=== PATIENT | female | born 1945 | race Asian ===

== ENCOUNTER 2019-10-25 19:22 | Observation (INO) | payer OTHER ==
--- NOTE | 2019-10-25 19:35 | PDOC ---
Attending Attestation - Resident Resident Name: Jesse Hutson - ED Attending Attestation I have performed the following: I have examined & evaluated the patient, The case was reviewed & discussed with the resident, I agree w/resident's findings & plan - HPI HPI: 10/25/19 23:33 see resident hpi - Physicial Exam PE: 10/25/19 23:33 see resident exam - Medical Decision Making 10/25/19 23:34 74-year-old female complaining of substernal/epigastric discomfort with nausea CT scan of the abdomen and pelvis shows no significant acute findings EKG shows a sinus rhythm at 70 bpm with no acute ST segment elevation Patient feels better, in light of her age and location of pain will hold for telemetry observation and serial enzymes Of note patient is status post valve repair and currently on cholesterol- lowering medications Discharge - Discharge Information Problems reviewed: Yes Clinical Impression/Diagnosis: Substernal discomfort Condition: Fair - Follow up/Referral Referrals: ON STAFF,NOT [Primary Care Provider] - - Patient Discharge Instructions - Post Discharge Activity
[2019-10-25] MEDS ORDERED: ACETAMINOPHEN 1000 MG/100 ML VIAL (NON FORMULARY) IVPB ONE (20:06)
[2019-10-25] MEDS ORDERED: FAMOTIDINE 20 MG/50 ML IVPB 20 MG/50 ML MG IVPB ONE ×2 (20:07→20:50)
[2019-10-25] MEDS ORDERED: MAG HYDROX/AL HYDROX/SIMETH 30 ML UNIT-DOSE CUP PO ONE (20:07)
[2019-10-25 20:43] LABS: BASO % 0.4 % (0-2.0); EOS % 1.1 % (0-4.5); HEMATOCRIT 38.9 % (32.4-45.2); HEMOGLOBIN 12.9 GM/dL (10.7-15.3); LYMPH % 23.1 % (8-40); MCH 30.8 pg (25.7-33.7); MCHC 33.1 g/dl (32.0-36.0); MEAN CELL VOLUME 93.3 fl (80-96); MEAN PLT VOLUME 9.1 fl (7.5-11.1); MONO % 14.5 % (3.8-10.2); NEUT % 60.9 % (42.8-82.8); PLATELET COUNT 166 K/MM3 (134-434); RBC 4.17 M/mm3 (3.60-5.2); RDW 13.3 % (11.6-15.6)
[2019-10-25 20:50] LABS: INR 0.92 (0.83-1.09); PROTHROMBIN TIME (PATIENT) 10.9 SEC (9.7-13.0)
[2019-10-25] MEDS ORDERED: MAG HYDROX/AL HYDROX/SIMETH 30 ML UNIT-DOSE CUP ONE (20:50)
[2019-10-25] MEDS ORDERED: ACETAMINOPHEN INJECTION 100 ML IVPB ONE (20:50)
[2019-10-25 20:53] LABS: ACTIVATED PTT 30.7 SECONDS (25.2-36.5)
--- NOTE | 2019-10-25 21:04 | PDOC ---
History of Present Illness - General Chief Complaint: Pain Stated Complaint: ABD PAIN Time Seen by Provider: 10/25/19 19:33 - History of Present Illness Initial Comments: 10/25/19 20:53 74yo female with HLD and an open heart surgery (likely a valve replacement) in 2012 presents with epigastric pain for four days. She complains of non-radiating constant epigastric pain associated with nausea, decreased appetite, abdominal fullness, belching, and seven pound weight loss in five days. She states she is having normal bowel movements, last BM yesterday. PMH/PSH: as above Meds: aspirin and cholesterol medication Allergies: none PCP: Halima Sexton, located in the [place] ([facility]) ROS GENERAL/CONSTITUTIONAL: No fever or chills. No weakness. HEAD, EYES, EARS, NOSE AND THROAT: No change in vision. No ear pain or dischar ge. No sore throat. CARDIOVASCULAR: No chest pain or shortness of breath RESPIRATORY: No cough, wheezing, or hemoptysis. GASTROINTESTINAL: nausea, epigastric pain, decreased appetite. No vomiting, diarrhea or constipation. GENITOURINARY: No dysuria, frequency, or change in urination. MUSCULOSKELETAL: No joint or muscle swelling or pain. No neck or back pain. SKIN: No rash NEUROLOGIC: No headache, vertigo, loss of consciousness, or change in strength/sensation. ENDOCRINE: No increased thirst. No abnormal weight change HEMATOLOGIC/LYMPHATIC: No anemia, easy bleeding, or history of blood clots. ALLERGIC/IMMUNOLOGIC: No hives or skin allergy. PE GENERAL: Awake, alert, and fully oriented, in no acute distress HEAD: No signs of trauma, normocephalic, atraumatic EYES: PERRLA, EOMI, sclera anicteric, conjunctiva clear ENT: Auricles normal inspection, hearing grossly normal, nares patent, oropharynx clear without exudates. Moist mucosa NECK: Normal ROM, supple, no lymphadenopathy, JVD, or masses LUNGS: No distress, speaks full sentences, clear to auscultation bilaterally HEART: Regular rate and rhythm, normal S1 and S2, no murmurs, rubs or gallops, peripheral pulses normal and equal bilaterally. ABDOMEN: Soft, tender to palpation in epigastrum and LLQ normoactive bowel sounds. No guarding, no rebound. No masses EXTREMITIES : Normal inspection, Normal range of motion, no edema. No clubbing or cyanosis. NEUROLOGICAL: Cranial nerves II through XII grossly intact. Normal speech, no focal sensorimotor deficits SKIN: Warm, Dry, normal turgor, no rashes or lesions noted Vital Signs Temp Pulse Resp BP Pulse Ox 98.3 F 73 19 148/69 96 10/25/19 19:25 10/25/19 19:25 10/25/19 19:25 10/25/19 19:25 10/25/19 19:25 MDM: 74yo female with HLD and an open heart surgery (likely a valve replacement) in 2012 presents with epigastric pain for four days. She complains of non-radiating constant epigastric pain associated with nausea, decreased appetite, abdominal fullness, belching, and seven pound weight loss in five days. Differential includes bowel obstruction, diverticulitis, pancreatitis, ACS. -EKG, CXR -CBC, CMP, coags, trops, lipase -CT A/P with IV contrast -tylenol, pepcid, maalox 10/25/19 22:28 EKG: NSR, rate 70, low voltage QRS, normal axis and intervals, no ischemic gabriel nges CXR: wnl RUQ: negative for acute pathology Labs: nothing acute Patient reports significant improvement in her symptoms. Signed out to night team CT A/P pending read Past History - Medical History Allergies/Adverse Reactions: Allergies Allergy/AdvReac Type Severity Reaction Status Date / Time No Known Allergies Allergy Verified 10/25/19 19:36 Home Medications: Ambulatory Orders Aspirin [Ecotrin] 81 mg PO DAILY 10/26/19 Atorvastatin Calcium 10/26/19 Dexilant 10/26/19 - Psycho-Social/Smoking History Smoking History: Never smoked Have you smoked in the past 12 months: No Information on smoking cessation initiated: No - Substance Abuse Hx (Audit-C & DAST Scrn) How often the patient has a drink containing alcohol: Never Score: In Men: 4 or > Positive; In Women: 3 or > Positive: 0 Screen Result (Pos requires Nsg. Audit-10AR): Negative In the last yr the pt used illegal drug/Rx for NonMed reason: No Score: Yes response is considered Positive: 0 Screen Result (Positive result requires Nsg. DAST-10): Negative *Physical Exam - Vital Signs Last Vital Signs Temp Pulse Resp BP Pulse Ox 98.3 F 73 19 148/69 96 10/25/19 19:25 10/25/19 19:25 10/25/19 19:25 10/25/19 19:25 10/25/19 19:25 ED Treatment Course - LABORATORY CBC & Chemistry Diagram: 10/26/19 07:00 10/26/19 07:00 - ADDITIONAL ORDERS Additional order review: Laboratory Results 10/25/19 20:29 PT with INR 10.90 INR 0.92 - RADIOLOGY Radiology Studies Ordered: Category Date Time Status ABDOMEN & PELVIS CT WITH CONTR [CT] Stat CT Scan 10/25/19 19:56 Ordered ABDOMEN US -LIMITED [US] Stat Ultrasound 10/25/19 19:58 Ordered Discharge - Discharge Information Problems reviewed: Yes Clinical Impression/Diagnosis: Substernal discomfort Condition: Fair - Follow up/Referral - Patient Discharge Instructions - Post Discharge Activity
[2019-10-25 21:17] LABS: ALBUMIN 3.7 g/dl (3.4-5.0); CALCIUM 8.9 mg/dL (8.5-10.1); CHLORIDE 110 mmol/L (98-107); LIPASE 214 U/L (73-393); POTASSIUM 4.9 mmol/L (3.5-5.1)
[2019-10-25 21:18] LABS: ALK PHOS 68 U/L (45-117); ANION GAP 7 MMOL/L (8-16); BILIRUBIN,TOTAL 0.4 mg/dL (0.2-1); BLOOD UREA NITROGEN 17.9 mg/dL (7-18); CO2 25 mmol/L (21-32); CREATININE 0.7 mg/dL (0.55-1.3); GLUCOSE,RANDOM 109 mg/dL (74-106); SGOT/AST 25 U/L (15-37); SGPT/ALT 21 U/L (13-61); SODIUM 142 mmol/L (136-145); TOT PROT 7.2 g/dl (6.4-8.2)
[2019-10-25 21:57] LABS: EPI CELLS 4 /uL (0-25.1); HYALINE CASTS 2 /uL (0-3.1); URINE APPEARANCE CLEAR; URINE BACTERIA 15 /uL (0-1359); URINE BILIRUBIN NEGATIVE (NEGATIVE); URINE COLOR YELLOW; URINE GLUCOSE (UA) NEGATIVE (NEGATIVE); URINE KETONE TRACE (NEGATIVE); URINE LEUK ESTERASE NEGATIVE (NEGATIVE); URINE NITRITE NEGATIVE (NEGATIVE); URINE PROTEIN NEGATIVE (NEGATIVE); URINE RBC 47 /uL (0-23.9); URINE WBC 5 /uL (0-25.8)
--- NOTE | 2019-10-26 03:35 | HP ---
CHIEF COMPLAINT: abdominal and epigastric pain PCP: Dr. Halima Sexton HISTORY OF PRESENT ILLNESS: 74yo F with PMHx of HLD, ?GERD, and open heart surgery in 2013 for valve replacement who presents with abdominal and epigastric pain. Patient said that the pain started on Thursday and has not gotten better. Since onset she has been unable to eat due to lack of appetite. She had a small BM today but before that one her last BM was on . She describes the pain as located in her upper abdomen and epigastric area, without radiation. This is the third time she has had this problem, once before in July and once in August. 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 Patient also explained that she has a abdominal CT scan scheduled for November 02 to further investigate her pain. As associated symptoms she felt subjective fever on Thursday night, but has not felt it the other days, and she endorsed CP when she has to strain during attempts to defecate. Otherwise she denied any associated symptoms including SOB, CP at rest, fevers/chills, dizziness, headaches. Patient exercises daily by walking 1-1.5h, experiences mild SOB when walking up stairs with bilateral knee pain. Has not exercised since symptoms started. ER course was notable for: (1) given ofirmev, pepcid, mylanta, and famotidine with symptomatic improvement and flatulence (2) EKG, CXR, and RUQ US unremarkable (3) abdominal/pelvic CT showing 0.7cm cyst in caudate lobe of liver, 1cm R hepatic lobe cyst, 1cm L ovarian cyst (4) CBC, BMP, coags, LFTs - all in range (5) CK 241, CK-MB 4.7, trop <0.02, lipase 214 (6) UA: trace ketones, 1+ blood, otherwise unremarkable. Urine culture pending Recent Travel: none PAST MEDICAL HISTORY: as per above PAST SURGICAL HISTORY: open heart surgery 2013 for her two children Family history: sister in [place] has colon cancer parents from old age in their 90s Social History: Smoking: denied but her is a smoker Alcohol: denied Drugs: denied Home: lives with Allergies No Known Allergies Allergy (Verified 10/25/19 19:36) HOME MEDICATIONS: patient takes the following meds but is unsure of dosages: dexilant crestor ASA Calcium vitamin D vitamin B12 multivitamin REVIEW OF SYSTEMS as per above PHYSICAL EXAMINATION Vital Signs - 24 hr 10/25/19 19:25 Temperature 98.3 F Pulse Rate 73 Respiratory 19 Rate Blood Pressure 148/69 O2 Sat by Pulse 96 Oximetry (%) GENERAL: F, appears mildly younger than stated age, sleeping but easily arousable, fully oriented showing no signs of acute distress HEAD: Normal with no signs of trauma LUNGS: CTAB without wheezing HEART: RRR, S2 much sharper than S1, no murmurs appreciated ABDOMEN: Soft, mildly tender to deep palpation in epigastric area, not distended, hyperactive bowel sounds, longstanding bone pain at xyphoid process, vertical sternal scar appreciated ~15cm MUSCULOSKELETAL: Normal range of motion at all joints EXTREMITIES: radial pulses and dorsalis pedis pulses palpable, no peripheral edema appreciated NEUROLOGICAL: Cranial nerves II-XII grossly intact, symmetrical facial movements, normal speech, no visual field deficits PSYCHIATRIC: Cooperative and interactive. Good eye contact. Responds appropria tly, tired mood and affect congruent with stated mood SKIN: no other rashes or lesions noted Laboratory Results - last 24 hr 10/25/19 10/25/19 10/25/19 20:20 20:29 20:29 WBC 5.0 RBC 4.17 Hgb 12.9 Hct 38.9 MCV 93.3 MCH 30.8 MCHC 33.1 RDW 13.3 Plt Count 166 MPV 9.1 Absolute Neuts (auto) 3.0 Neutrophils % 60.9 Lymphocytes % 23.1 Monocytes % 14.5 H Eosinophils % 1.1 Basophils % 0.4 Nucleated RBC % 0 PT with INR 10.90 INR 0.92 PTT (Actin FS) 30.7 Sodium 142 Potassium 4.9 Chloride 110 H Carbon Dioxide 25 Anion Gap 7 L BUN 17.9 Creatinine 0.7 Est GFR (CKD-EPI)AfAm 97.54 Est GFR (CKD-EPI)NonAf 84.16 Random Glucose 109 H Lactic Acid Calcium 8.9 Total Bilirubin 0.4 AST 25 ALT 21 Alkaline Phosphatase 68 Creatine Kinase 241 H Creatine Kinase Index 1.9 CK-MB (CK-2) 4.7 H Troponin I < 0.02 Total Protein 7.2 Albumin 3.7 Lipase 214 Urine Color Urine Appearance Urine pH Ur Specific [place] Urine Protein Urine Glucose (UA) Urine Ketones Urine Blood Urine Nitrite Urine Bilirubin Urine Urobilinogen Ur Leukocyte Esterase Urine WBC (Auto) Urine RBC (Auto) Urine Casts (Auto) U Epithel Cells (Auto) Urine Bacteria (Auto) 10/25/19 10/25/19 20:29 21:39 WBC RBC Hgb Hct MCV MCH MCHC RDW Plt Count MPV Absolute Neuts (auto) Neutrophils % Lymphocytes % Monocytes % Eosinophils % Basophils % Nucleated RBC % PT with INR INR PTT (Actin FS) Sodium Potassium Chloride Carbon Dioxide Anion Gap BUN Creatinine Est GFR (CKD-EPI)AfAm Est GFR (CKD-EPI)NonAf Random Glucose Lactic Acid 0.7 Calcium Total Bilirubin AST ALT Alkaline Phosphatase Creatine Kinase Creatine Kinase Index CK-MB (CK-2) Troponin I Total Protein Albumin Lipase Urine Color Yellow Urine Appearance Clear Urine pH 5.0 Ur Specific [place] 1.033 Urine Protein Negative Urine Glucose (UA) Negative Urine Ketones Trace H Urine Blood 1+ H Urine Nitrite Negative Urine Bilirubin Negative Urine Urobilinogen 1.0 Ur Leukocyte Esterase Negative Urine WBC (Auto) 5 Urine RBC (Auto) 47 Urine Casts (Auto) 2 U Epithel Cells (Auto) 4 Urine Bacteria (Auto) 15 ASSESSMENT/PLAN: 74yo F with PMHx of HLD, ?GERD, and open heart surgery in 2012 for valve replacement who presents with abdominal and epigastric pain. ED course showed symptomatic improvement with passing of flatulence after receiving ofirmev, pepcid, mylanta, and famotidine, and patient is admitted for r/o ACS given cardiac history. #abdominal/epigastric pain - possibly due to severe GERD vs peptic ulcer vs gastritis patient is being worked up by another physician, would recommend to f/u with Dr. Suarez [phone] for full detailed medical history, up to date workup, and inform him of her recent CT scan since she is scheduled for one on November 02. Can also contact the daughter if indicated at [phone]. - started lipitor 40 - started ASA 81 - started pantoprazole 40 - will continue with symptomatic treatment - if pain worsens, can give PO acetaminophen - currently no consultations indicated (GI vs cardio) #r/o ACS - trending trops #PPX - DVT: lovenox - GI: pantoprazole #FEN - no standing fluids - replete lytes PRN - regular diet #Dispo: continue monitoring on telemetry. Family Medical History Family History: As Documented Visit type - Medication Review Med list reviewed for High Risk Meds patients 65 and older: No - Emergency Visit Emergency Visit: Yes ED Registration Date: 10/26/19 Care time: The patient presented to the Emergency Department on the above date and was hospitalized for further evaluation of their emergent condition. - New Patient This patient is new to me today: Yes Date on this admission: 10/26/19 - Critical Care Critical Care patient: No ATTENDING PHYSICIAN STATEMENT I saw and evaluated the patient. I reviewed the resident's note and discussed the case with the resident. I agree with the resident's findings and plan as documented. SUBJECTIVE: OBJECTIVE: ASSESSMENT AND PLAN:
--- NOTE | 2019-10-26 04:07 | PN ---
Teaching Attending Note Name of Resident: Dev Mares ATTENDING PHYSICIAN STATEMENT I saw and evaluated the patient. I reviewed the resident's note and discussed the case with the resident. I agree with the resident's findings and plan as documented. SUBJECTIVE: OBJECTIVE: ASSESSMENT AND PLAN: 74 year old female with a PMHx notable for HLD and an open heart surgery (likely a valve replacement) in 2012 who presents with epigastric pain x four days. PLAN # CT imaging with no acute pathology - Agree with IV fluids, anti-emetics, pain management - PPI - consider GI evaluation
[2019-10-26 05:38] VITALS: BMI 23.9
[2019-10-26] MEDS ORDERED: PANTOPRAZOLE 40 MG TABLET PO SCH (07:00)
[2019-10-26 08:22] LABS: BASO % 0.3 % (0-2.0); EOS % 1.3 % (0-4.5); HEMOGLOBIN 12.7 GM/dL (10.7-15.3); LYMPH % 34.4 % (8-40); MCH 30.8 pg (25.7-33.7); MCHC 33.4 g/dl (32.0-36.0); MEAN CELL VOLUME 92.2 fl (80-96); MONO % 14.8 % (3.8-10.2); NEUT % 49.2 % (42.8-82.8); PLATELET COUNT 165 K/MM3 (134-434); RBC 4.13 M/mm3 (3.60-5.2); RDW 13.4 % (11.6-15.6); WHITE BLOOD COUNT 4.5 K/mm3 (4.0-10.0)
[2019-10-26 08:27] LABS: ALBUMIN 3.6 g/dl (3.4-5.0); ALK PHOS 63 U/L (45-117); ANION GAP 6 MMOL/L (8-16); BILIRUBIN,TOTAL 0.5 mg/dL (0.2-1); BLOOD UREA NITROGEN 15.2 mg/dL (7-18); CALCIUM 8.7 mg/dL (8.5-10.1); CHLORIDE 109 mmol/L (98-107); CO2 26 mmol/L (21-32); CREATININE 0.6 mg/dL (0.55-1.3); GLUCOSE,RANDOM 88 mg/dL (74-106); MAGNESIUM 2.5 mg/dL (1.8-2.4); PHOSPHOROUS 3.1 mg/dL (2.5-4.9); POTASSIUM 5.4 mmol/L (3.5-5.1); SGOT/AST 24 U/L (15-37); SGPT/ALT 22 U/L (13-61); SODIUM 141 mmol/L (136-145); TOT PROT 6.8 g/dl (6.4-8.2)
[2019-10-26] MEDS ORDERED: ASPIRIN 81 MG CHEWABLE TABLETS PO SCH (10:00)
[2019-10-26] MEDS ORDERED: ENOXAPARIN NA (PORCINE) 40 MG/0.4 ML DISP.SYRIN SQ SCH (10:00)
--- NOTE | 2019-10-26 10:05 | EKG ---
Test Reason : Blood Pressure : / mmHG Vent. Rate : 070 BPM Atrial Rate : 070 BPM P-R Int : 154 ms QRS Dur : 072 ms QT Int : 414 ms P-R-T Axes : 027 048 062 degrees QTc Int : 447 ms NORMAL SINUS RHYTHM LOW VOLTAGE QRS BORDERLINE ECG NO PREVIOUS ECGS AVAILABLE Confirmed by MD James, Gadiel ([id number]) on 10/26/2019 10:04:46 AM Referred By: Confirmed By:Gadiel Ramirez MD
[2019-10-26] MEDS ORDERED: SODIUM ZIRCONIUM CYCLOSILICATE (LOKELMA) 5 GM PACKET PO ONE (10:06)
[2019-10-26] MEDS ORDERED: FLUCONAZOLE 100 MG TABLET (UD) PO SCH (10:15)
[2019-10-26] MEDS ORDERED: SODIUM ZIRCONIUM CYCLOSILICATE (LOKELMA) 5 GM PACKET PO SCH (10:15)
--- NOTE | 2019-10-26 13:25 | DS ---
Physical Exam: SUBJECTIVE: Patient seen and examined. Pt. denies any pain. OBJECTIVE: Vital Signs Period Temp Pulse Resp BP Sys/[place] Pulse Ox Last 24 Hr 97.6 F-98.3 F 62-73 18-22 102-148/55-69 96-98 PHYSICAL EXAM GENERAL: The patient is awake, alert, and fully oriented, in no acute distress. HEAD: Normal with no signs of trauma. EYES: Sclera anicteric, conjunctiva clear. ENT: Ears normal, nares patent, oropharynx clear without exudates, moist mucous membranes. NECK: Trachea midline, full range of motion, supple. LUNGS: Breath sounds equal, clear to auscultation bilaterally, no wheezes, no crackles, no accessory muscle use. HEART: Regular rate and rhythm, S1, S2 without murmur ABDOMEN: Soft, nontender, nondistended, normoactive bowel sounds, no guarding, no rebound, no hepatosplenomegaly, no masses. EXTREMITIES: 2+ dorsal pedal pulses, warm, well-perfused, no edema. NEUROLOGICAL: Normal speech, gait not observed. PSYCH: Normal mood, normal affect. SKIN: Warm, dry, normal turgor, no rashes or lesions noted. LABS Laboratory Results - last 24 hr 10/25/19 10/25/19 10/25/19 20:20 20:29 20:29 WBC 5.0 RBC 4.17 Hgb 12.9 Hct 38.9 MCV 93.3 MCH 30.8 MCHC 33.1 RDW 13.3 Plt Count 166 MPV 9.1 Absolute Neuts (auto) 3.0 Neutrophils % 60.9 Lymphocytes % 23.1 Monocytes % 14.5 H Eosinophils % 1.1 Basophils % 0.4 Nucleated RBC % 0 PT with INR 10.90 INR 0.92 PTT (Actin FS) 30.7 Sodium 142 Potassium 4.9 Chloride 110 H Carbon Dioxide 25 Anion Gap 7 L BUN 17.9 Creatinine 0.7 Est GFR (CKD-EPI)AfAm 97.54 Est GFR (CKD-EPI)NonAf 84.16 Random Glucose 109 H Hemoglobin A1c % Lactic Acid Calcium 8.9 Phosphorus Magnesium Total Bilirubin 0.4 AST 25 ALT 21 Alkaline Phosphatase 68 Creatine Kinase 241 H Creatine Kinase Index 1.9 CK-MB (CK-2) 4.7 H Troponin I < 0.02 Total Protein 7.2 Albumin 3.7 Lipase 214 Urine Color Urine Appearance Urine pH Ur Specific [place] Urine Protein Urine Glucose (UA) Urine Ketones Urine Blood Urine Nitrite Urine Bilirubin Urine Urobilinogen Ur Leukocyte Esterase Urine WBC (Auto) Urine RBC (Auto) Urine Casts (Auto) U Epithel Cells (Auto) Urine Bacteria (Auto) 10/25/19 10/25/19 10/26/19 20:29 21:39 07:00 WBC 4.5 RBC 4.13 Hgb 12.7 Hct 38.0 MCV 92.2 MCH 30.8 MCHC 33.4 RDW 13.4 Plt Count 165 MPV 9.0 Absolute Neuts (auto) 2.2 Neutrophils % 49.2 Lymphocytes % 34.4 D Monocytes % 14.8 H Eosinophils % 1.3 Basophils % 0.3 Nucleated RBC % 0 PT with INR INR PTT (Actin FS) Sodium Potassium Chloride Carbon Dioxide Anion Gap BUN Creatinine Est GFR (CKD-EPI)AfAm Est GFR (CKD-EPI)NonAf Random Glucose Hemoglobin A1c % Lactic Acid 0.7 Calcium Phosphorus Magnesium Total Bilirubin AST ALT Alkaline Phosphatase Creatine Kinase Creatine Kinase Index CK-MB (CK-2) Troponin I Total Protein Albumin Lipase Urine Color Yellow Urine Appearance Clear Urine pH 5.0 Ur Specific [place] 1.033 Urine Protein Negative Urine Glucose (UA) Negative Urine Ketones Trace H Urine Blood 1+ H Urine Nitrite Negative Urine Bilirubin Negative Urine Urobilinogen 1.0 Ur Leukocyte Esterase Negative Urine WBC (Auto) 5 Urine RBC (Auto) 47 Urine Casts (Auto) 2 U Epithel Cells (Auto) 4 Urine Bacteria (Auto) 15 10/26/19 10/26/19 07:00 11:40 WBC RBC Hgb Hct MCV MCH MCHC RDW Plt Count MPV Absolute Neuts (auto) Neutrophils % Lymphocytes % Monocytes % Eosinophils % Basophils % Nucleated RBC % PT with INR INR PTT (Actin FS) Sodium 141 Potassium 5.4 H Chloride 109 H Carbon Dioxide 26 Anion Gap 6 L BUN 15.2 Creatinine 0.6 Est GFR (CKD-EPI)AfAm 102.62 Est GFR (CKD-EPI)NonAf 88.54 Random Glucose 88 Hemoglobin A1c % 5.6 Lactic Acid Calcium 8.7 Phosphorus 3.1 Magnesium 2.5 H Total Bilirubin 0.5 AST 24 ALT 22 Alkaline Phosphatase 63 Creatine Kinase Creatine Kinase Index CK-MB (CK-2) Troponin I < 0.02 Total Protein 6.8 Albumin 3.6 Lipase Urine Color Urine Appearance Urine pH Ur Specific [place] Urine Protein Urine Glucose (UA) Urine Ketones Urine Blood Urine Nitrite Urine Bilirubin Urine Urobilinogen Ur Leukocyte Esterase Urine WBC (Auto) Urine RBC (Auto) Urine Casts (Auto) U Epithel Cells (Auto) Urine Bacteria (Auto) HOSPITAL COURSE: Date of Admission:10/26/19 Date of Discharge: 10/26/19 Pt. admitted for abdominal pain. CT Abd/Pelvis and Abd US negative for acute pathology. Cardiac enzymes, CMP, Lipase and CBC wnl. Pt. given antacids to good effect. EGD report reviewed from Dr. Car's office. Discussed with your GI physician that all medications for management of your candidiasis infections were sent. Hospital follow up as detailed below. PT. monitored on telemetry without acute events, given concern for atypical chest pain. HIV test sent. Minutes to complete discharge: 25 Discharge Summary Problems reviewed: Yes Reason For Visit: SUBSTERNAL DISCOMFORT, NAUSEA Current Active Problems Substernal discomfort (Acute) Condition: Stable - Instructions Diet, Activity, Other Instructions: You came in for abdominal pain that started 5 days ago and was associated with nausea and vomiting. We imaged your abdomen and did not find anything immediately concerning. We contacted Dr. 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 We called your pharmacy and noted that Dr. Suarez has sent all the prescriptions there that you need. Please take them as directed. Please follow up with your [employer] Att[employer] Dr. Suarez within 1 week. Please follow up with your Primary [facility] Physician within 1 week. If you do not have one we have provided one for you. Referrals: [facility] [place] [Provider Group] - 1 Week ON STAFF,NOT [Primary Care Provider] - 1 Week Disposition: HOME - Home Medications Comprehensive Discharge Medication List: Ambulatory Orders Aspirin [Ecotrin] 81 mg PO DAILY 10/26/19 Atorvastatin Ca [Lipitor] 20 mg PO HS 10/26/19 Calcium Carbonate/Vitamin D3 [Calcium 500-Vit D3 200 Tablet] 1 each PO DAILY 10/26/19 Cholecalciferol (Vitamin D3) [Vitamin D3 -] 1,000 mg PO DAILY 10/26/19 Dexlansoprazole [Dexilant] 60 mg PO DAILY 10/26/19 Famotidine [Pepcid] 40 mg PO BID 10/26/19 Ibandronate Sodium 150 mg PO DAILY 10/26/19 Oxybutynin Chloride 5 mg PO DAILY 10/26/19 This patient is new to me today: Yes Date on this admission: 10/26/19 Emergency Visit: Yes ED Registration Date: 10/26/19 Care time: The patient presented to the Emergency Department on the above date and was hospitalized for further evaluation of their emergent condition. Critical Care patient: No - Discharge Referral Referred to [facility] Med [facility] No ATTENDING PHYSICIAN STATEMENT I saw and evaluated the patient. I reviewed the resident's note and discussed the case with the resident. I agree with the resident's findings and plan as documented. SUBJECTIVE: OBJECTIVE: ASSESSMENT AND PLAN:
[2019-10-26 14:17] VITALS: BP 113/58; PULSE 71; TEMP 97.9
[2019-10-26] MEDS ORDERED: ATORVASTATIN CA 40 MG TABLET (FP) PO SCH (22:00)
[2019-10-27] MEDS ORDERED: FLUCONAZOLE 40 MG/ML SUSPENSION PO SCH (10:00)
== END 2019-10-26 15:24 | disposition home or self-care (01) ==
LOC: JER 19:22 → SUPCPDRO 19:22 → JERBED 10-26 00:38 → UNDOADMOB 10-26 00:38 → INTOOBSV 10-26 02:18 → OBSVTOIN 10-26 02:18 → JERBED 10-26 04:34 → J4W 10-26 04:34 → JERBED 10-26 09:56
PROVIDERS: ADMIT Internal Medicine
PROC: 3E033NZ Introduction of Analgesics, Hypnotics, Sedatives into Peripheral Vein, Percutaneous Approach (ICD-10-PCS; principal; 2019-10-26)
PROC: 3E023GC Introduction of Other Therapeutic Substance into Muscle, Percutaneous Approach (ICD-10-PCS; 2019-10-26)
PROC: 3E033GC Introduction of Other Therapeutic Substance into Peripheral Vein, Percutaneous Approach (ICD-10-PCS; 2019-10-26)
DX: R10.13 Epigastric pain (principal); E78.5 Hyperlipidemia, unspecified; Z98.890 Other specified postprocedural states
CPT/HCPCS: 36415; 71045-TC-FY; 74177-TC; 76705-TC; 80053; 80074; 81003; 82550; 82553; 83036; 83605; 83690; 83735; 84100; 84484; 85025; 85610; 85730; 87086; 87389; 93005; 93010; 96365; 96372; 96375; 99285-25; G0378; J0131; Q9967; U0003

== ENCOUNTER 2020-03-28 09:14 | Inpatient (IN) | payer OTHER ==
[2020-03-28] MEDS ORDERED: DEXAMETHASONE SOD PHOSPHATE 4 MG/1 ML VIAL IVPUSH ONE (09:44)
[2020-03-28] MEDS ORDERED: VANCOMYCIN 1,000 MG in DEXTROSE 5%-WATER - 250 ML IVPB ONE (09:44)
[2020-03-28] MEDS ORDERED: PIPERACILLIN/TAZOB 4.5 GM 4.5 GM in DEXTROSE 5%-WATER - 100 ML IVPB ONE (09:44)
[2020-03-28] MEDS ORDERED: ACETAMINOPHEN 1000 MG/100 ML VIAL (NON FORMULARY) IVPB ONE (09:45)
[2020-03-28] MEDS ORDERED: AZITHROMYCIN IVPB 500 MG in DEXTROSE 5%-WATER - 250 ML IVPB ONE (09:45)
[2020-03-28] MEDS ORDERED: ACETAMINOPHEN INJECTION 100 ML IVPB ONE (09:55)
[2020-03-28] MEDS ORDERED: DEXAMETHASONE SOD PHOSPHATE 10 MG/1 ML VIAL ONE (09:55)
[2020-03-28] MEDS ORDERED: PIPERACILLIN/TAZOB 4.5 GM 4.5 GM/100 ML BAG IVPB ONE (09:55)
[2020-03-28] MEDS ORDERED: VANCOMYCIN 1 GRAM (PRE-DOCKED) 1,000 MG/250 ML BAG IVPB ONE (09:56)
[2020-03-28] MEDS ORDERED: AZITHROMYCIN IVPB 500 MG/250 ML BAG IVPB ONE (09:56)
[2020-03-28 10:07] LABS: BASO % 0.2 % (0-2.0); EOS % 0.3 % (0-4.5); HEMATOCRIT 34.8 % (32.4-45.2); HEMOGLOBIN 11.6 GM/dL (10.7-15.3); LYMPH % 12.1 % (8-40); MCH 31.2 pg (25.7-33.7); MCHC 33.5 g/dl (32.0-36.0); MEAN CELL VOLUME 93.3 fl (80-96); MEAN PLT VOLUME 9.1 fl (7.5-11.1); MONO % 11.6 % (3.8-10.2); NEUT % 75.8 % (42.8-82.8); PLATELET COUNT 210 K/MM3 (134-434); RBC 3.73 M/mm3 (3.60-5.2); RDW 12.9 % (11.6-15.6)
[2020-03-28 10:21] LABS: PROTHROMBIN TIME (PATIENT) 12.1 SEC (9.7-13.0)
[2020-03-28 10:24] LABS: ACTIVATED PTT 33.7 SECONDS (25.2-36.5)
[2020-03-28 10:26] LABS: CHLORIDE 100 mmol/L (98-107); POTASSIUM 4.9 mmol/L (3.5-5.1); SODIUM 132 mmol/L (136-145)
[2020-03-28 10:28] LABS: CALCIUM 8.5 mg/dL (8.5-10.1)
[2020-03-28 10:29] LABS: ALBUMIN 2.8 g/dl (3.4-5.0); ANION GAP 4 MMOL/L (8-16); BLOOD UREA NITROGEN 15.8 mg/dL (7-18); CO2 29 mmol/L (21-32); GLUCOSE,RANDOM 110 mg/dL (74-106); MAGNESIUM 2.4 mg/dL (1.8-2.4)
[2020-03-28 10:32] LABS: CREATININE 0.7 mg/dL (0.55-1.3); SGOT/AST 64 U/L (15-37); SGPT/ALT 56 U/L (13-61)
[2020-03-28 10:33] LABS: BILIRUBIN,TOTAL 0.4 mg/dL (0.2-1); TOT PROT 6.6 g/dl (6.4-8.2)
[2020-03-28 10:34] LABS: ALK PHOS 72 U/L (45-117)
[2020-03-28 10:35] LABS: LDH 402 U/L (84-246); N-TERMINAL BNP 562.3 pg/ml (5-450)
[2020-03-28] MEDS ORDERED: SODIUM CHLORIDE 1,000 ML IV STA (10:38)
[2020-03-28] MEDS ORDERED: ALBUTEROL SO4 HFA INHALER IH PRN (10:58)
[2020-03-28 12:44] LABS: URINE APPEARANCE CLEAR; URINE BILIRUBIN NEGATIVE (NEGATIVE); URINE COLOR YELLOW; URINE GLUCOSE (UA) NEGATIVE (NEGATIVE); URINE KETONE NEGATIVE (NEGATIVE); URINE LEUK ESTERASE NEGATIVE (NEGATIVE); URINE NITRITE NEGATIVE (NEGATIVE); URINE PROTEIN TRACE (NEGATIVE); URINE UROBILINOGEN 0.2 mg/dL (0.2-1.0)
[2020-03-28] MEDS ORDERED: APIXABAN 5 MG TABLET ONE (13:17)
[2020-03-28] MEDS: APIXABAN 5 MG TABLET PO SCH ×2 (13:32→21:11)
[2020-03-28] MEDS ORDERED: PIPERACILLIN/TAZOB 4.5 GM 4.5 GM in DEXTROSE 5%-WATER 100 ML IVPB SCH (15:00)
[2020-03-28] MEDS ORDERED: REMDESIVIR 200 MG in SODIUM CHLORIDE 210 ML IVPB ONE (16:00)
[2020-03-28 18:48] VITALS: BMI 23.8
[2020-03-28] MEDS: ZINC SULFATE 220 MG CAPSULE (FP) PO SCH (21:10)
[2020-03-28] MEDS: ATORVASTATIN CA 20 MG TABLET (FP) PO SCH (21:11)
[2020-03-28] MEDS: FAMOTIDINE 20 MG TABLET PO SCH (21:11)
[2020-03-28] MEDS: ASCORBIC ACID 500 MG TABLET (FP) PO SCH (21:11)
[2020-03-29] MEDS ORDERED: cefTRIAXone SODIUM 1 GM VIAL ONE (08:11)
[2020-03-29] MEDS ORDERED: DEXTROSE 5%-WATER - 50 ML IVPB ONE (08:12)
[2020-03-29 09:10] LABS: BASO % 0.1 % (0-2.0); HEMATOCRIT 33.9 % (32.4-45.2); HEMOGLOBIN 11.6 GM/dL (10.7-15.3); MCH 31.3 pg (25.7-33.7); MCHC 34.1 g/dl (32.0-36.0); MEAN CELL VOLUME 91.8 fl (80-96); MEAN PLT VOLUME 9.6 fl (7.5-11.1); MONO % 6.4 % (3.8-10.2); NEUT % 82.5 % (42.8-82.8); PLATELET COUNT 230 K/MM3 (134-434); RDW 12.9 % (11.6-15.6); WHITE BLOOD COUNT 6.8 K/mm3 (4.0-10.0)
[2020-03-29] MEDS: ZINC SULFATE 220 MG CAPSULE (FP) PO SCH ×2 (09:10→21:25)
[2020-03-29] MEDS: ASPIRIN COATED 81 MG TABLET.EC PO SCH (09:10)
[2020-03-29] MEDS: ASCORBIC ACID 500 MG TABLET (FP) PO SCH ×2 (09:11→21:25)
[2020-03-29] MEDS: CHOLECALCIFEROL (VIT D3) 1,000 UNIT (25 MCG) TABLET PO SCH (09:11)
[2020-03-29] MEDS: APIXABAN 5 MG TABLET PO SCH (09:12)
[2020-03-29] MEDS: FAMOTIDINE 20 MG TABLET PO SCH ×2 (09:12→21:25)
[2020-03-29] MEDS: CEFTRIAXONE 1 GM in DEXTROSE 5%-WATER - 50 ML IVPB SCH (09:12)
[2020-03-29 09:34] LABS: POTASSIUM 4.7 mmol/L (3.5-5.1)
[2020-03-29 09:37] LABS: BLOOD UREA NITROGEN 18.6 mg/dL (7-18); MAGNESIUM 2.5 mg/dL (1.8-2.4)
[2020-03-29 09:40] LABS: CREATININE 0.4 mg/dL (0.55-1.3)
[2020-03-29 09:41] LABS: PHOSPHOROUS 3.1 mg/dL (2.5-4.9)
[2020-03-29 09:42] LABS: ALBUMIN 2.4 g/dl (3.4-5.0); BILIRUBIN,TOTAL 0.4 mg/dL (0.2-1); TOT PROT 6.1 g/dl (6.4-8.2)
[2020-03-29] MEDS ORDERED: DEXAMETHASONE 2 MG TABLET PO SCH ×2 (10:00)
[2020-03-29] MEDS ORDERED: ENOXAPARIN NA (PORCINE) 40 MG/0.4 ML DISP.SYRIN SQ SCH (10:00)
[2020-03-29] MEDS ORDERED: PT OWN MED DRAWER 7, Y5N ONE ×2 (11:31→11:49)
[2020-03-29] MEDS: DEXAMETHASONE SOD PHOSPHATE 4 MG/1 ML VIAL IVPUSH SCH (11:33)
[2020-03-29] MEDS ORDERED: guaiFENesin/CODEINE 5 ML UNIT-DOSE CUPS PO PRN (12:17)
[2020-03-29] MEDS: AZITHROMYCIN IVPB 250 MG in DEXTROSE 5%-WATER - 250 ML IVPB SCH (13:10)
[2020-03-29] MEDS: REMDESIVIR 100 MG in SODIUM CHLORIDE 230 ML IVPB SCH (15:27)
[2020-03-29] MEDS: ATORVASTATIN CA 20 MG TABLET (FP) PO SCH (21:25)
[2020-03-29] MEDS: ACETAMINOPHEN 325 MG TABLET (FP) PO PRN (21:25)
[2020-03-29] MEDS: MELATONIN 5 MG TABLETS PO SCH (21:29)
[2020-03-30 08:57] LABS: HEMATOCRIT 33.7 % (32.4-45.2); HEMOGLOBIN 11.5 GM/dL (10.7-15.3); MCH 31.4 pg (25.7-33.7); MCHC 34.1 g/dl (32.0-36.0); MEAN CELL VOLUME 92.1 fl (80-96); MEAN PLT VOLUME 9.3 fl (7.5-11.1); PLATELET COUNT 300 K/MM3 (134-434); RBC 3.66 M/mm3 (3.60-5.2); WHITE BLOOD COUNT 11.6 K/mm3 (4.0-10.0)
[2020-03-30 09:16] LABS: POTASSIUM 4.9 mmol/L (3.5-5.1)
[2020-03-30 09:19] LABS: CALCIUM 7.8 mg/dL (8.5-10.1)
[2020-03-30 09:20] LABS: ALBUMIN 2.5 g/dl (3.4-5.0); BLOOD UREA NITROGEN 22.6 mg/dL (7-18)
[2020-03-30 09:23] LABS: CREATININE 0.5 mg/dL (0.55-1.3)
[2020-03-30 09:25] LABS: BILIRUBIN,TOTAL 0.4 mg/dL (0.2-1); TOT PROT 5.9 g/dl (6.4-8.2)
[2020-03-30] MEDS ORDERED: PT OWN MED DRAWER 7, Y5N ONE ×3 (09:58→18:59)
[2020-03-30] MEDS ORDERED: DEXTROSE 5%-WATER - 50 ML IVPB ONE (09:59)
[2020-03-30] MEDS ORDERED: cefTRIAXone SODIUM 1 GM VIAL ONE (09:59)
[2020-03-30] MEDS: ZINC SULFATE 220 MG CAPSULE (FP) PO SCH ×2 (10:05→21:03)
[2020-03-30] MEDS: FAMOTIDINE 20 MG TABLET PO SCH ×2 (10:05→21:03)
[2020-03-30] MEDS: ASCORBIC ACID 500 MG TABLET (FP) PO SCH ×2 (10:05→21:03)
[2020-03-30] MEDS: ASPIRIN COATED 81 MG TABLET.EC PO SCH (10:05)
[2020-03-30] MEDS: CEFTRIAXONE 1 GM in DEXTROSE 5%-WATER - 50 ML IVPB SCH (10:06)
[2020-03-30] MEDS: CHOLECALCIFEROL (VIT D3) 1,000 UNIT (25 MCG) TABLET PO SCH (10:06)
[2020-03-30] MEDS: DEXAMETHASONE SOD PHOSPHATE 4 MG/1 ML VIAL IVPUSH SCH (10:07)
[2020-03-30] MEDS: ENOXAPARIN NA (PORCINE) 40 MG/0.4 ML DISP.SYRIN SQ SCH (10:09)
[2020-03-30] MEDS: AZITHROMYCIN IVPB 250 MG in DEXTROSE 5%-WATER - 250 ML IVPB SCH (10:52)
[2020-03-30] MEDS: ACETAMINOPHEN 325 MG TABLET (FP) PO PRN (11:01)
[2020-03-30] MEDS ORDERED: guaiFENesin/CODEINE 5 ML UNIT-DOSE CUPS PO PRN (11:12)
[2020-03-30] MEDS ORDERED: SODIUM CHLORIDE NASAL SPRAY 44 ML BOTTLE NS PRN (11:16)
[2020-03-30] MEDS: REMDESIVIR 100 MG in SODIUM CHLORIDE 230 ML IVPB SCH (15:46)
[2020-03-30] MEDS: guaiFENesin/CODEINE 10 ML UNIT-DOSE CUPS PO SCH (21:02)
[2020-03-30] MEDS: ATORVASTATIN CA 20 MG TABLET (FP) PO SCH (21:03)
[2020-03-30] MEDS: MELATONIN 5 MG TABLETS PO SCH (21:03)
[2020-03-31 08:18] LABS: HEMATOCRIT 33.2 % (32.4-45.2); HEMOGLOBIN 11.3 GM/dL (10.7-15.3); MCH 31.4 pg (25.7-33.7); MEAN CELL VOLUME 92.3 fl (80-96); PLATELET COUNT 302 K/MM3 (134-434); WHITE BLOOD COUNT 7.5 K/mm3 (4.0-10.0)
[2020-03-31] MEDS ORDERED: cefTRIAXone SODIUM 1 GM VIAL ONE (08:39)
[2020-03-31] MEDS ORDERED: DEXTROSE 5%-WATER - 50 ML IVPB ONE (08:39)
[2020-03-31 08:53] LABS: POTASSIUM 4.7 mmol/L (3.5-5.1)
[2020-03-31 08:57] LABS: CALCIUM 8.1 mg/dL (8.5-10.1)
[2020-03-31 08:58] LABS: BLOOD UREA NITROGEN 20.7 mg/dL (7-18)
[2020-03-31 09:01] LABS: CREATININE 0.6 mg/dL (0.55-1.3)
[2020-03-31] MEDS: ENOXAPARIN NA (PORCINE) 40 MG/0.4 ML DISP.SYRIN SQ SCH (09:05)
[2020-03-31] MEDS: CHOLECALCIFEROL (VIT D3) 1,000 UNIT (25 MCG) TABLET PO SCH (09:05)
[2020-03-31] MEDS: ASCORBIC ACID 500 MG TABLET (FP) PO SCH ×2 (09:05→21:02)
[2020-03-31] MEDS: FAMOTIDINE 20 MG TABLET PO SCH ×2 (09:05→21:02)
[2020-03-31] MEDS: CEFTRIAXONE 1 GM in DEXTROSE 5%-WATER - 50 ML IVPB SCH (09:05)
[2020-03-31] MEDS: ASPIRIN COATED 81 MG TABLET.EC PO SCH (09:05)
[2020-03-31] MEDS: ZINC SULFATE 220 MG CAPSULE (FP) PO SCH ×2 (09:05→21:02)
[2020-03-31] MEDS: DEXAMETHASONE SOD PHOSPHATE 4 MG/1 ML VIAL IVPUSH SCH (09:06)
[2020-03-31] MEDS: AZITHROMYCIN IVPB 250 MG in DEXTROSE 5%-WATER - 250 ML IVPB SCH (09:57)
[2020-03-31] MEDS ORDERED: BENZOCAINE/MENTH/CETYLPYRD CL 1 EACH LOZENGE MM PRN (10:56)
[2020-03-31] MEDS: REMDESIVIR 100 MG in SODIUM CHLORIDE 230 ML IVPB SCH (16:02)
[2020-03-31] MEDS: guaiFENesin/CODEINE 10 ML UNIT-DOSE CUPS PO SCH (21:02)
[2020-03-31] MEDS: MELATONIN 5 MG TABLETS PO SCH (21:02)
[2020-03-31] MEDS: ATORVASTATIN CA 20 MG TABLET (FP) PO SCH (21:02)
[2020-04-01 07:18] VITALS: TEMP 98.2
[2020-04-01 08:20] LABS: BASO % 0.1 % (0-2.0); HEMATOCRIT 32.6 % (32.4-45.2); HEMOGLOBIN 11.2 GM/dL (10.7-15.3); LYMPH % 21.8 % (8-40); MCH 31.1 pg (25.7-33.7); MCHC 34.4 g/dl (32.0-36.0); MEAN CELL VOLUME 90.5 fl (80-96); MEAN PLT VOLUME 8.3 fl (7.5-11.1); MONO % 12.1 % (3.8-10.2); PLATELET COUNT 321 K/MM3 (134-434); RDW 12.8 % (11.6-15.6); WHITE BLOOD COUNT 6.4 K/mm3 (4.0-10.0)
[2020-04-01 08:47] LABS: POTASSIUM 4.5 mmol/L (3.5-5.1)
[2020-04-01 08:48] LABS: CALCIUM 8.2 mg/dL (8.5-10.1)
[2020-04-01 08:49] LABS: BLOOD UREA NITROGEN 18.7 mg/dL (7-18)
[2020-04-01] MEDS ORDERED: DEXTROSE 5%-WATER - 50 ML IVPB ONE (08:51)
[2020-04-01] MEDS ORDERED: cefTRIAXone SODIUM 1 GM VIAL ONE (08:51)
[2020-04-01 08:52] LABS: CREATININE 0.5 mg/dL (0.55-1.3)
[2020-04-01] MEDS: ASCORBIC ACID 500 MG TABLET (FP) PO SCH (09:01)
[2020-04-01] MEDS: ASPIRIN COATED 81 MG TABLET.EC PO SCH (09:01)
[2020-04-01] MEDS: ENOXAPARIN NA (PORCINE) 40 MG/0.4 ML DISP.SYRIN SQ SCH (09:01)
[2020-04-01] MEDS: CEFTRIAXONE 1 GM in DEXTROSE 5%-WATER - 50 ML IVPB SCH (09:01)
[2020-04-01] MEDS: ZINC SULFATE 220 MG CAPSULE (FP) PO SCH (09:01)
[2020-04-01] MEDS: CHOLECALCIFEROL (VIT D3) 1,000 UNIT (25 MCG) TABLET PO SCH (09:01)
[2020-04-01] MEDS: FAMOTIDINE 20 MG TABLET PO SCH (09:02)
[2020-04-01] MEDS: DEXAMETHASONE SOD PHOSPHATE 4 MG/1 ML VIAL IVPUSH SCH (09:02)
[2020-04-01] MEDS: AZITHROMYCIN IVPB 250 MG in DEXTROSE 5%-WATER - 250 ML IVPB SCH (10:18)
[2020-04-01 14:03] VITALS: BP 101/58; PULSE 78
[2020-04-01] MEDS: REMDESIVIR 100 MG in SODIUM CHLORIDE 230 ML IVPB SCH (15:56)
== END 2020-04-01 17:52 | disposition home or self-care (01) | DRG 177 ==
LOC: JER 09:14 → JERBED 09:59 → J8W 18:26
PROVIDERS: ADMIT Internal Medicine; ATTEND Internal Medicine
PROC: XW033E5 Introduction of Remdesivir Anti-infective into Peripheral Vein, Percutaneous Approach, New Technology Group 5 (ICD-10-PCS; principal; 2020-03-28)
DX: U07.1 COVID-19 (principal); J12.82 Pneumonia due to coronavirus disease 2019; J96.01 Acute respiratory failure with hypoxia; E87.2 Acidosis; E78.5 Hyperlipidemia, unspecified; K21.9 Gastro-esophageal reflux disease without esophagitis; Z95.2 Presence of prosthetic heart valve; I10 Essential (primary) hypertension
CPT/HCPCS: 36415; 71045-TC-FY; 80048; 80053; 81003; 82550; 82728; 83605; 83615; 83735; 83880; 84100; 84484; 85025; 85027; 85379; 85610; 85730; 86140; 86769; 86850; 86900; 86901; 87040; 87086; 87804; 93005; 93010; 94761; 99285-25; C9399; C9803; J0131; U0003